=== PATIENT | female | born 1990 | race Caucasian/White ===

== ENCOUNTER 2017-01-31 15:38 | Emergency (ER) | payer BC ==
[2017-01-31 15:51] VITALS: BP 138/78
--- NOTE | 2017-01-31 16:00 | UC ---
Respiratory Complaint HPI - HPI Summary HPI Summary: 26 y/o female presents to the urgent care c/o productive cough since Sunday. Pt states she is producing a mild white phlegm. She felt mild SOB and started using her Albuterol inhaler. She has also taking [id number] PO for her body aches, which has resolved today. Pt denies fever, wheezing, chest pain , LAGOS, nasal congestion, N/V/D. - History of Current Complaint Chief Complaint: UCRespiratory Stated Complaint: COUGH/FEVER Time Seen by Provider: 01/31/17 15:58 Hx Obtained From: Patient Hx Last Menstrual Period: 01/22/17 ?: No Onset/Duration: Gradual Onset, Lasting Days, Still Present Timing: Constant Severity Initially: Mild Severity Currently: Moderate Pain Intensity: 0 Pain Scale Used: 0-10 Numeric Character: Cough: Productive - white phlegm Aggravating Factors: Nothing Alleviating Factors: Bronchodilator Associated Signs And Symptoms: Positive: Dyspnea, Nasal Congestion. Negative: Fever, Wheezing - Risk Factors Pulmonary Embolism Risk Factors: Negative Cardiac Risk Factors: Negative Pseudomonas Risk Factors: Negative Tuberculosis Risk Factors: Negative - Allergies/Home Medications Allergies/Adverse Reactions: Allergies Allergy/AdvReac Type Severity Reaction Status Date / Time Erythromycin Allergy Intermediate Hives Verified 01/31/17 15:47 Amoxicillin Allergy Rash Verified 01/31/17 15:47 pecans Allergy Swelling Uncoded 01/31/17 15:47 Of Face,Lips,& Throat PMH/Surg Hx/FS Hx/Imm Hx Previously Healthy: Yes Respiratory History: Asthma - Surgical History Surgical History: Yes Surgery Procedure, Year, and Place: C- section 09/26/15; wisdom teeth - Family History Known Family History: Positive: Cardiac Disease - BROTHER WPW, FATHER CARDIAC CONCERNS, Hypertension, Diabetes - Social History Occupation: Employed Full-time Lives: With Family Alcohol Use: None Substance Use Type: None Smoking Status (MU): Never Smoked Tobacco Review of Systems Constitutional: Negative, Other - body aches Skin: Negative Eyes: Negative ENT: Nasal Discharge, Sinus Congestion Respiratory: Shortness Of Breath - mild Cardiovascular: Negative Gastrointestinal: Negative Genitourinary: Negative Motor: Negative Neurovascular: Negative Musculoskeletal: Negative Neurological: Negative Psychological: Negative Is Patient Immunocompromised?: No All Other Systems Reviewed And Are Negative: Yes Physical Exam Triage Information Reviewed: Yes Appearance: Well-Appearing, No Pain Distress, Well-Nourished, Obese Vital Signs: Initial Vital Signs Temp 98.2 F 01/31/17 15:43 Pulse 65 01/31/17 15:43 Resp 16 01/31/17 15:43 BP 138/78 01/31/17 15:43 Pulse Ox 99 01/31/17 15:43 Vital Signs Reviewed: Yes Eye Exam: Normal Eyes: Positive: Conjunctiva Clear - PERRLA, EOMI ENT: Positive: Normal ENT inspection, Hearing grossly normal, Pharyngeal erythema, Nasal congestion - edematous, erythematous nasal mucosa, Nasal drainage - clear. Negative: Tonsillar swelling, Tonsillar exudate Dental Exam: Normal Neck exam: Normal Neck: Positive: Supple, Nontender, No Lymphadenopathy Respiratory Exam: Normal Respiratory: Positive: Chest non-tender, Lungs clear, Normal breath sounds, No respiratory distress Cardiovascular Exam: Normal Cardiovascular: Positive: RRR, No Murmur, Pulses Normal Abdominal Exam: Normal Abdomen Description: Positive: Nontender, No Organomegaly, Soft. Negative: CVA Tenderness (R), CVA Tenderness (L) Bowel Sounds: Positive: Present Musculoskeletal Exam: Normal Musculoskeletal: Positive: Strength Intact, ROM Intact, No Edema Neurological Exam: Normal Psychological Exam: Normal Skin Exam: Normal UC Diagnostic Evaluation - Laboratory O2 Sat by Pulse Oximetry: 99 Respiratory Course/Dx - Course Course Of Treatment: 26 y/o female presents to the urgent care c/o productive cough since Sunday01/28/2017. Pt states she is producing a mild white phlegm. She felt mild SOB and started using her Albuterol inhaler. She has also taking [id number] PO for her body aches, which has resolved today. Pt denies fever , wheezing, chest pain, LAGOS, nasal congestion, N/V/D.Hx obtained, PE performed. Pt with the URI. Pt Tessalon PO to alleviate cough, advised to use the albuterol nebulizer at home if she continues with SOB. Advised to increase fluid intake, rest and eat well. If not improvement of symptoms to return to the urgent care or f/u with PCP for further management. - Differential Dx/Diagnosis Differential Diagnosis/HQI/PQRI: Asthma, Bronchitis, Influenza, Laryngitis, Lower Resp Infection, Sinusitis Provider Diagnoses: 1- Upper respiratory infection Discharge - Discharge Plan Condition: Stable Disposition: HOME Prescriptions: Albuterol 2.5MG/3ML (0.083%)* [Ventolin 2.5 MG/3 ML NEB.ELLA*] 2.5 mg INH Q6H #1 box Benzonatate CAP* [Tessalon 100 MG CAP*] 100 mg PO TID #15 cap Patient Education Materials: Cold Symptoms (ED) Referrals: FRANSISCO Olguin [Primary Care Provider] - 1 Week Additional Instructions: 1-Please continue taking ibuprofen PO q6-8hrs prn as instructed after meals to alleviate symptoms. 2- Take Tessalon Tabs PO to alleviate cough, increase fluid intake, rest ant est well. Use the Nebulizer in case you start feeling SOB. 3-If symptoms do not improve or worsen please return to the urgent care or f/u with your PCP for further evaluation and treatment.
== END 2017-01-31 16:29 | disposition home or self-care (01) ==
LOC: UCCORT 15:38
DX: J06.9 Acute upper respiratory infection, unspecified (principal); J45.909 Unspecified asthma, uncomplicated; Z88.0 Allergy status to penicillin
CPT/HCPCS: 99212; G0463

== ENCOUNTER 2017-03-13 12:21 | Emergency (ER) | payer BC ==
[2017-03-13 14:12] VITALS: BP 115/63
--- NOTE | 2017-03-13 14:33 | UC ---
Complaint Female HPI - HPI Summary HPI Summary: 26 y/o female presents to the urgent care c/o feeling bloated and gassy with ache pain around his upper abdomen that radiates to his lower back for the past week. Pain is dull. 6/10. She also states frequency and pressure with urination. She has had nausea at times, espically when she is very bloated, but denies vomit, diarrhea or constipation. She had a normal BM this morning and she had a good breakfast this morning. She took Ibuprofen 200mg PO last night which relieve her symptoms. Pt denies fever, chest pain, SOB, burning on urination, vaginal discharge, Hx of STDs. LMP: 02/23/2017 - History Of Current Complaint Chief Complaint: UCGeneralIllness Stated Complaint: URINARY Time Seen by Provider: 03/13/17 14:02 Hx Obtained From: Patient Hx Last Menstrual Period: 02/23/17 ?: No Onset/Duration: Gradual Onset, Lasting Weeks - 1 week, Still Present Timing: Intermittent, Lasting Minutes Severity Initially: Mild Severity Currently: Moderate Pain Intensity: 6 Pain Scale Used: 0-10 Numeric Radiates to: lower back Character: Dull Aggravating Factor(s): Urination Alleviating Factor(s): Meds Associated Signs And Symptoms: Positive: Back Pain, Nausea. Negative: Fever, Vomiting(# Of Episodes =), Genital Swelling, Genital Blisters - Risk Factors Ectopic Risk Factor: Negative Ovarian Torsion Risk Factor: Negative - Allergies/Home Medications Allergies/Adverse Reactions: Allergies Allergy/AdvReac Type Severity Reaction Status Date / Time Erythromycin Allergy Intermediate Hives Verified 03/13/17 14:04 Amoxicillin Allergy Rash Verified 03/13/17 14:04 pecans Allergy Swelling Uncoded 03/13/17 14:04 Of Face,Lips,& Throat PMH/Surg Hx/FS Hx/Imm Hx Previously Healthy: Yes Respiratory History: Asthma - Surgical History Surgical History: Yes Surgery Procedure, Year, and Place: C- section 09/26/15; wisdom teeth - Family History Known Family History: Positive: Cardiac Disease - BROTHER WPW, FATHER CARDIAC CONCERNS, Hypertension, Diabetes, Other - NO fmh of mastitis - Social History Occupation: Employed Full-time Lives: With Family Alcohol Use: Occasionally Substance Use Type: None Smoking Status (MU): Never Smoked Tobacco Review of Systems Constitutional: Negative Skin: Negative Eyes: Negative ENT: Negative Respiratory: Negative Cardiovascular: Negative Gastrointestinal: Abdominal Pain - ache, dull , bloaded abdomen around upper abdomen with burping Genitourinary: Frequency - and bladder pressure Motor: Negative Neurovascular: Negative Musculoskeletal: Negative Neurological: Negative Psychological: Negative Is Patient Immunocompromised?: No All Other Systems Reviewed And Are Negative: Yes Physical Exam Triage Information Reviewed: Yes Vital Signs: Initial Vital Signs Temp 98.9 F 03/13/17 14:06 Pulse 89 03/13/17 14:06 Resp 18 03/13/17 14:06 BP 115/63 03/13/17 14:06 Pulse Ox 99 03/13/17 14:06 - Additional Comments Vital Signs Reviewed: Yes General: well developed, well nourished female sitting in the examining table w/ o any apparent distress Eyes: Positive: Conjunctiva Clear - PERRLA, EOMI, fundi grossly normal ENT: Positive: Normal ENT inspection, Hearing grossly normal, Pharynx normal, TMs normal Neck: Positive: Supple, Nontender, No Lymphadenopathy Respiratory: Positive: Chest non-tender, Lungs clear, Normal breath sounds, No respiratory distress Cardiovascular: Positive: RRR, No Murmur, Pulses Normal, Brisk Capillary Refill Abdomen Description: abdomen Flat with no distention. No surface trauma, scars , incisions. hyperactive bowel sounds present in all four quadrants. Soft and non tenderness to palpation, no guarding, no rigidity to palpation. No masses palpated, no pulsation in epigastric area. No organomegaly. Negative [place] signs. No periumbilical tenderness. No rebound in the lower quadrants. NT over McBurneys point. no suprapubic tenderness with no distension. Good femoral pulses bilaterally. No hernia noted. No CVAT bilaterally Bowel Sounds: Positive: Present, Hyperactive Musculoskeletal: Positive: Strength Intact, ROM Intact, No Edema Neurological Exam: Normal Psychological Exam: Normal Skin Exam: Normal Complaint Female Dx - Course Course Of Treatment: 26 y/o female presents to the urgent care c/o feeling bloated and gassy with ache pain around his upper abdomen that radiates to his lower back for the past week. Pain is dull. 6/10. She also states frequency and pressure with urination. She has had nausea at times, especially when she is very bloated, but denies vomit, diarrhea or constipation. She had a normal BM this morning and she had a good breakfast this morning. She took Ibuprofen 200mg PO last night which relieve her symptoms. Pt denies fever, chest pain, SOB , burning on urination, vaginal discharge, Hx of STDs. LMP: 02/23/2017. Hx obtained, UA ordered, Result: negative. PE : WNL. Pt retaining a lot of gas in the abdomen. Pt Rx Ibuprofen PO and Omeprazole PO. Advised on dietary modifications. Pt explained D/C intrsuctions. Pt understood and agreed with plan of care. - Differential Dx/Diagnosis Differential Diagnosis/HQI/PQRI: Cervicitis, Renal Colic, Ureteral Stone, Urinary Tract Infection Provider Diagnoses: 1-Epigastric abdominl pain. 2-Gas and bloating Discharge - Discharge Plan Condition: Stable Disposition: HOME Prescriptions: Ibuprofen TAB* [Motrin TAB* 800 MG] 800 mg PO Q6H #20 tab Omeprazole CAP* [Prilosec CAP* 20 MG] 20 mg PO DAILY #30 cap. Patient Education Materials: Gas and Bloating (ED), Abdominal Pain (ED) Referrals: FRANSISCO Olguin [Primary Care Provider] - 3 Days Additional Instructions: 1- Please take medications as directed to alleviate symptoms. Take Ibuprofen PO after meals. Drink hot water or hot tea to relieve gas. Limiting dietary ingestion of known gas-producing foods such as cabbage, onions, broccoli, brussel sprouts, wheat, and potatoes can help reduce symptoms. Also avoid drinking carbonated beverages, and gulping food or liquids 2 - If symptoms do not improve or worsen in the next 2 days please go immediately to the ER or your PCP for further evaluation and treatment.
[2017-03-13] MEDS ORDERED: Ibuprofen TAB* 400 MG PO ONE (14:54)
== END 2017-03-13 15:25 | disposition home or self-care (01) ==
LOC: UCCORT 12:21
DX: R10.13 Epigastric pain (principal); R14.0 Abdominal distension (gaseous); Z32.02 Encounter for pregnancy test, result negative; Z88.1 Allergy status to other antibiotic agents; Z91.018 Allergy to other foods
CPT/HCPCS: 81003; 84702; 99212; A9270-GY; G0463

== ENCOUNTER 2017-10-30 15:22 | Emergency (ER) | payer BC ==
[2017-10-30 16:16] VITALS: BP 134/68
--- NOTE | 2017-10-30 16:34 | UC ---
Throat Pain/Nasal Robbin HPI - HPI Summary HPI Summary: Pt c/o sore throat and generalized malaise X 2 weeks. Pt states she was seen by PCP 1 week ago and had rapid strep test- negative, now states throat has improved but sinus pressure and pain has worsened. - History of Current Complaint Chief Complaint: UCGeneralIllness Stated Complaint: SORE THROAT, CONGESTION Time Seen by Provider: 10/30/17 16:26 Hx Obtained From: Patient Hx Last Menstrual Period: 10/01/17 ?: No Onset/Duration: Gradual Onset, Lasting Weeks, Still Present, Worse Since - onset Severity: Moderate Pain Intensity: 6 Associated Signs & Symptoms: Positive: Dysphagia, Sinus Discomfort Related History: Seasonal Allergies - Epiglottits Risk Factors Epiglottis Risk Factors: Negative - Allergies/Home Medications Allergies/Adverse Reactions: Allergies Allergy/AdvReac Type Severity Reaction Status Date / Time amoxicillin Allergy Rash Verified 10/30/17 16:17 erythromycin base Allergy Hives Verified 10/30/17 16:17 pecans Allergy Swelling Uncoded 10/30/17 16:17 Of Face,Lips,& Throat Home Medications: Home Medications Dm/Pseudoephed/Acetaminophen [Day-Time Cold-Flu Softgel] 1 each PO Q6HR PRN 10/12 [History Confirmed 10/30/17] PMH/Surg Hx/FS Hx/Imm Hx Previously Healthy: Yes - Surgical History Surgical History: Yes Surgery Procedure, Year, and Place: C- section 09/26/15; wisdom teeth - Family History Known Family History: Positive: Cardiac Disease - BROTHER WPW, FATHER CARDIAC CONCERNS, Hypertension, Diabetes, Other - NO fmh of mastitis - Social History Occupation: Employed Full-time Lives: With Family Alcohol Use: Occasionally Substance Use Type: None Smoking Status (MU): Never Smoked Tobacco Have You Smoked in the Last Year: No Review of Systems Constitutional: Fatigue Skin: Negative Eyes: Negative ENT: Sore Throat, Sinus Congestion, Sinus Pain/Tenderness Respiratory: Negative Cardiovascular: Negative Gastrointestinal: Negative Genitourinary: Negative Motor: Negative Neurovascular: Negative Musculoskeletal: Negative Neurological: Headache Psychological: Negative Is Patient Immunocompromised?: No All Other Systems Reviewed And Are Negative: Yes Physical Exam Triage Information Reviewed: Yes Appearance: Ill-Appearing Vital Signs: Initial Vital Signs Temp 98.9 F 10/30/17 16:12 Pulse 86 10/30/17 16:12 Resp 16 10/30/17 16:12 BP 134/68 10/30/17 16:12 Pulse Ox 99 10/30/17 16:12 Vital Signs Reviewed: Yes Eye Exam: Normal ENT Exam: Other ENT: Positive: Tonsillar swelling, Sinus tenderness Dental Exam: Normal Neck exam: Normal Respiratory Exam: Normal Cardiovascular Exam: Normal Musculoskeletal Exam: Normal Neurological Exam: Normal Psychological Exam: Normal Skin Exam: Normal Throat Pain/Nasal Course/Dx - Differential Dx/Diagnosis Differential Diagnosis/HQI/PQRI: Pharyngitis, Sinusitis, Tonsillitis Provider Diagnoses: sinusitis Discharge - Sign-Out/Discharge Documenting (check all that apply): Discharge/Admit/Transfer - Discharge Plan Condition: Stable Disposition: HOME Prescriptions: DOXYcycline CAP(*) [DOXYcycline 100MG CAP(*)] 100 mg PO Q12H #20 cap Patient Education Materials: Sinusitis (ED), Tonsillitis (ED) Referrals: FRANSISCO Olguin [Primary Care Provider] - Additional Instructions: Please follow up with your PCP or return to clinic as needed. - Billing Disposition and Condition Condition: STABLE Disposition: Home
== END 2017-10-30 16:41 | disposition home or self-care (01) ==
LOC: UCCORT 15:22
DX: J32.9 Chronic sinusitis, unspecified (principal); Z88.1 Allergy status to other antibiotic agents
CPT/HCPCS: 99212; G0463

== ENCOUNTER 2018-09-11 07:57 | Inpatient (IN) | payer BC, OTHER ==
[~2018-09-11 07:57] MED LIST: Buffered Lidocaine 1% SYRIN* 1 ML/SYRINGE INTRADERM ONE; Lactated Ringers 1000 ML Bag* 1,000 ML IV SCH; Sodium Citrate/Citric Acid* 15 ML UDC PO ONE
--- OUTSIDE RECORDS SUMMARY | 2018-09-11 08:02 | XMS REPORT | Continuity of Care Document ---
:1990 External Reference #:[id number] Author Name Janice Keys MD Address [address] [place] [address] Care Team Providers Name Role Phone Tiera Bhatt MD Primary Care Physician Unavailable Payers Date Identification Numbers Payment Provider Subscriber Policy Number: [id number] [facility] Steve Ko PayID: [id number] [address] [address] [place] [address] Policy Number: [id number] [facility] Steve Ko PayID: [id number] [address] [place] [address] Advance Directives Description No Information Available Problems Description No Information Family History Date Family Member(s) Observation Comments Father due to Unknown Causes () Mother A&W Children 3 First Son A&W First Daughter A&W Second Daughter A&W Siblings 2 First Brother A&W First Brother born with heart problems First Brother born with white boles parkinsons First Sister A&W Paternal Grandfather due to heart problems () Paternal Grandmother Skin Cancer Maternal Grandfather A&W Maternal Grandmother A&W Social History Type Date Description Comments Sex Unknown Marital Status Lives With Lives With Daughters Lives With Son Tobacco Use Start: Unknown Never Smoked Cigarettes ETOH Use Occasionally consumes alcohol Recreational Drug Use Denies Drug Use Currently Active Patient is currently sexually active STD's No STD History Allergies, Adverse Reactions, Alerts Date Description Reaction Status Severity Comments 02/18/2018 Erythromycin Hives Active Severe 02/18/2018 Amoxicillin Rash Active Moderate Medications Medication Date Status Form Strength Qnty SIG Indications Ordering Provider Advocate 08/14/ Active Misc 33G X 4 mm 100uni Use with Lana Whitman Insulin Pen 2018 ts KwikPen Jose Ripley , CNM Humulin N 08/13/ Active Supn 100Unit/ML 3ml inject 2 Phaelon Kwikpen 2019 units SQ at MD Jenny bedtime, increase as directed Blood Glucose 07/26/ Active Kit W/Device 1Monit use in in Federico ANery Monitoring 2018 or the morning Gelber, System before M.D. eating, then 2 hours after every meal Blood Glucose 07/26/ Active Strips 100uni use as Federico Ley Test Strips 2018 ts directed Gelber, Premium M.D. Lancets 07/26/ Active Misc 100uni for use with Federico A. 2019 ts blood Gelber, glucose M.D. monitor. use as directed four times a day Ferrous 07/18/ Active Tablets 324(38Fe) 60tabs 1 by mouth Federico A. Gluconate 2019 mg every day GelFernandez garcia Diclegis 02/25/ Active Tablets DR 10-10mg 100tab take 2 tabs Mahrie 2018 s qhs. if Baez, symptoms CNM persist can add 1 tab qam . if symptoms persist, add 1 tab every afternoon. MDD 4 tabs Ondansetron 02/25/ Active Tablets 4mg 30tabs 1-2 tablets Erianna HCL 2018 every 6 Poon, hours as CNM needed for nausea Flintstones / Active Chewtabs 60mg take 2 by Unknown Complete 0000 mouth daily Epipen 2-Ray / Active Solution 0.3mg/0.3M bring to Unknown 0000 Auto-Injec L office as t directed Benadryl / Active Tablets 25mg prn Unknown Allergy 0000 Metformin HCL 08/06/ Hx Tablets 500mg 90tabs take 1 Federico A. 2019 - tablet once Gelber, 08/28/ daily for 7 M.D. 2019 days, then take 1 tablet 2 times a day for 7 days, then take 1 tablet 3 times a day. Tamiflu 07/05/ Hx Capsules 75mg 10caps 1 by mouth Mahrie 2019 - daily x 10 Baez, 07/12/ days for flu CNM 2019 prophylaxis Reglan 02/18/ Hx Tablets 5mg 60tabs 1-2 tabs by Erianna 2018 - mouth every Poon, 6 hours as CNM 2019 needed nausea Unisom / Hx Tablets 25mg Unknown 0000 - 2018 Vitamin B 6 / Hx Tablets 50mg Unknown 0000 - 2018 Immunizations Description No Information Available Vital Signs Date Vital Result Comment 03/07/2018 9:27am BP Systolic 130 mmHg BP Diastolic 68 mmHg Height 63 inches 5'3" Weight 194.00 lb BMI (Body Mass Index) 34.4 kg/m2 Last Menstrual Period [id number] 4 Parity 3 Results Test Date Facility Test Result H/L Range Note Laboratory test [facility] Genital For GRP SEE RESULT 1 finding [address] [place] [address] B Strep Only BELOW [phone] Glucose Tolerance [facility] GTT 3HR (SEE NOTE) 2 3HR Gestational 9 [place] [address] Gestational [phone] Laboratory test [facility] Glucose 1 HR 183 mg/dL High 70-160 3 finding 9 [place] [address] Post Prandial [phone] CBC With No Diff [facility] White Blood 10.2 N 3.5- 10.8 9 [place] [address] Count 10^3/uL [phone] Red Blood Count 4.09 10^6/uL N 4.00-5.40 Hemoglobin 10.7 g/dL Low 12.0-16.0 Hematocrit 34 % Low 35-47 Mean Corpuscular Volume 83 fL N 80-97 Mean Corpuscular Hemoglobin 26 pg Low 27-31 Mean Corpuscular HGB Conc 32 g/dL N 31-36 Red Cell Distribution Width 15 % N 10.5-15 Platelet Count 315 10^3/uL N 150-450 Mean Platelet Volume 7.7 fL N 7.4-10.4 Laboratory test 07/17/2018 [facility] Rubella Screen Equivocal Immune 4 [place] [address] [phone] Urine Drug Comp 04/04/2018 [facility] Urine Negative 5 20 [place] [address] Amphetamine ng/mL [phone] Urine Barbiturates Negative ng/mL 6 Urine Benzodiazepines Negative ng/mL 7 Urine Cocaine Negative ng/mL 8 Urine Phencyclidine Negative ng/mL Cutoff: 25 Urine Tetrahydrocannabinol Negative ng/mL Cutoff: 50 9 Creatinine, Urine 141.5 mg/dL Specific Hickman 1.014 pH 7.1 Oxidants Negative 10 Adulterants Comment Normal Codeine, Ur Not Detected ng/mL Cutoff: 25 11 Msvcpkp-0-pobc-glucuronide, Ur Not Detected ng/mL 12 Morphine, Ur Not Detected ng/mL Cutoff: 25 13 Gzjlaabk-5-wbxe-glucuronide, U Not Detected ng/mL 14 6-monoacetylmorphine, Ur Not Detected ng/mL Cutoff: 25 15 Hydrocodone, Ur Not Detected ng/mL Cutoff: 25 16 Norhydrocodone, Ur Not Detected ng/mL Cutoff: 25 17 Dihydrocodeine, Ur Not Detected ng/mL Cutoff: 25 18 Hydromorphone, Ur Not Detected ng/mL Cutoff: 25 19 Ymyjiyoxvupip6pxxdkkmlldsfokq Not Detected ng/mL 20 Oxycodone, Ur Not Detected ng/mL Cutoff: 25 21 Noroxycodone, Ur Not Detected ng/mL Cutoff: 25 22 Oxymorphone, Ur Not Detected ng/mL Cutoff: 25 23 Tnfhlhtobwm-1-juyw-glucuronide Not Detected ng/mL 24 Noroxymorphone, Ur Not Detected ng/mL Cutoff: 25 25 Fentanyl, Ur Not Detected ng/mL Cutoff: 2 26 Norfentanyl, Ur Not Detected ng/mL Cutoff: 2 27 Meperidine, Ur Not Detected ng/mL Cutoff: 25 28 Normeperidine, Ur Not Detected ng/mL Cutoff: 25 29 Naloxone, Ur Not Detected ng/mL Cutoff: 25 30 Rizcbdyt-8-tsen-glucuronide, U Not Detected ng/mL 31 Methadone, Ur Not Detected ng/mL Cutoff: 25 32 Eddp, Ur Not Detected ng/mL Cutoff: 25 33 Propoxyphene, Ur Not Detected ng/mL Cutoff: 25 34 Norpropoxyphene, Ur Not Detected ng/mL Cutoff: 25 35 Tramadol, Ur Not Detected ng/mL Cutoff: 25 36 O-desmethyltramadol, Ur Not Detected ng/mL Cutoff: 25 37 Tapentadol, Ur Not Detected ng/mL Cutoff: 25 38 N-desmethyltapentadol, Ur Not Detected ng/mL Cutoff: 50 39 Duhkojczcq-vhzz-xstrlqchbjt, U Not Detected ng/mL 40 Buprenorphine, Ur Not Detected ng/mL Cutoff: 5 41 Norbuprenorphine, Ur Not Detected ng/mL Cutoff: 5 42 Norbuprenorphine glucuronide Not Detected ng/mL Cutoff: 20 43 Opioid Interpretation See Comment 44 GC/Chlamydia Dna 04/04/2018 [facility] Chlamydia [place] [address] trachomatis Rna [phone] Neisseria gonorrhoeae (GC) Rna Negative Negative Urine Culture And 03/07/2018 [facility] Urine Culture SEE RESULT 45 [place] [address] BELOW [phone] Toxoplasma Igg & 03/07/2018 [facility] Toxoplasma IgG [place] [address] Antibody [phone] Toxoplasma IgG Antibody Index <3 IU/mL 46 Toxoplasma IgM Antibody Negative Negative 47 Parvovirus B19 03/07/2018 [facility] Parvovirus Positive Abnormal Negative Igg [place] [address] (B19) IgG [phone] Antibody Parvovirus (B19) IgM Antibody Negative Negative Parvovirus Interpretation See Comment 48 Lead 03/07/2018 [facility] Lead,Venous, B < 1.0 g/dL 0.0- 4.9 49 [place] [address] [phone] Venous/Capillary Venous Submitting Laboratory Phone [phone] HIV 1/2 AB 03/07/2018 [facility] HIV 1 2 Nonreactive Nonreactive 51 [place] [address] Antibody [phone] Type And 03/07/2018 [facility] [place] [address] Blood Type [phone] Antibody Screen NEGATIVE CBC With No 03/07/2018 [facility] White Blood 7.6 10^3/uL N 3.5-10.8 [place] [address] Count [phone] Red Blood Count 4.37 10^6/uL N 4.00-5.40 Hemoglobin 12.8 g/dL N 12.0-16.0 Hematocrit 38 % N 35-47 Mean Corpuscular Volume 88 fL N 80-97 Mean Corpuscular Hemoglobin 29 pg N 27-31 Mean Corpuscular HGB Conc 33 g/dL N 31-36 Red Cell Distribution Width 14 % N 10.5-15 Platelet Count 281 10^3/uL N 150-450 Mean Platelet Volume 7.7 um3 N 7.4-10.4 PNL No 03/07/2018 [facility] Rubella Screen Equivocal Immune 52 [place] [address] [phone] Hemoglobin A1c 5.3 % N 4.0-5.6 53 Hepatitis B Surface Ag Nonreactive Nonreactive 54 Syphillis Igg W/Reflex RPR Nonreactive Nonreactive 55 Laboratory test 03/07/2018 [facility] Cytology SEE RESULT BELOW 56 [place] [address] [phone] 1 SEE RESULT BELOW Name: STEVE SHIN : [address]: Janice Keys MD Acct: [id number] Unit: [id number] AGE: 28 Location: [facility] Re08/20/18 SEX: F Status: REG REF SPEC: [id number] FRANKIE: 08/20/[address]: Janice Keys MD REQ: [id number] RECD: 08/20/18-1231 STATUS: COMP _ SOURCE: CER/VAG/RE SPDESC: ORDERED: Grp B Strp Scrn, GBS Sensi COMMENTS: Pt with allergies to Amoxicillin and Erythromycin [id number] QUERIES: Is Patient Penicillin Allergic? Y Is patient penicillin allergic and/or sensitivities needed? Y Provider Requisition # [id number]_ Procedure Result Reported Site Group B Strep Culture Screen Final 08/23/18845 ML Group B Strep Screen Positive GBS Sensitivity Final 08/23/18845 ML Organism 1 STREP AGALACTIAE - (GROUP B) 1. STREP AGALACTIAE - (GROUP B) M.I.C. RX --------- ------ Ampicillin <=0.25 S Penicillin <=0.12 S Clindamycin R Levofloxacin 1 S Linezolid 2 S * Moxifloxacin 0.5 S * Quinupristin/Dalfopristin <=0.25 S Tetracycline >=16 R Tigecycline <=0.12 S Vancomycin <=0.5 S Imipenem-Deduced S * Ampicillin/Sulbactam-Deduced S Cefazolin-Deduced S CONTINUED ON NEXT PAGE DEPARTMENT OF PATHOLOGY, [address] [place] [address] Bean Ott M.D. Director [facility] # [id number] Patient: STEVE SHIN [id number] (Continued) Specimen: [id number] Collected: 08/20/18 Received: 08/20/18-1230 (Continued) Procedure Result Reported Site GBS Sensitivity Final (continued) * These antibiotics are not available in the [facility] Formulary Contact the Microbiology Department for any additional antibiotic reporting. * ML - Main Lab . END OF REPORT DEPARTMENT OF PATHOLOGY, [address], [place], [place] [address] Bean Ott M.D. Director [facility] # [id number] 2 GLU Fast 92 Col: 07/25/18 1055 GLU 1HR 201 Col: 07/25/18 1155 GLU 2HR 181 Col: 07/25/18 1255 GLU 3HR 103 Col: 07/25/18 1355 GLU Interp Col: 07/25/18 1055 GTT normal ranges for obstetrics per the [employer] (ACOG).Based on 100 gm glucose load: Fasting <95 mg/dl 1hr <180 mg/dl 2hr <155 mg/dl 3hr <140 mg/dl 3 [id number] 4 [id number] 5 REFERENCE VALUE Cutoff: 500 6 REFERENCE VALUE Cutoff: 200 7 REFERENCE VALUE Cutoff: 100 8 REFERENCE VALUE Cutoff: 150 9 ADDITIONAL INFORMATION This report is intended for use in clinical monitoring or management of patients. It is not intended for use in employment-related testing. 10 REFERENCE VALUE Cutoff: 200 mg/L 11 Tylenol 3 12 Metabolite of codeine REFERENCE VALUE Cutoff: 100 13 Samreen Foote, Contin; Also a minor metabolite (10%) of codeine and can be seen in low concentrations (<2,000 ng/mL) with poppy seed ingestion. 14 Metabolite of morphine REFERENCE VALUE Cutoff: 100 15 Metabolite of heroin 16 Lortab, Umbarger, Vicodin; Also a very minor metabolite of codeine and impurity (<1%) of oxycodone. 17 Metabolite of hydrocodone 18 Metabolite of hydrocodone 19 Dilaudid, Exalgo; Also a metabolite of hydrocodone and a minor (<5%) metabolite of morphine. 20 Metabolite of hydromorphone REFERENCE VALUE Cutoff: 100 21 Endocet, Percocet, Oxycontin 22 Metabolite of oxycodone 23 Numorphan, Opana; Also a metabolite of oxycodone. 24 Metabolite of oxymorphone REFERENCE VALUE Cutoff: 100 25 Metabolite of oxymorphone 26 Actiq, Duragesic, Fentora 27 Metabolite of fentanyl 28 Demerol 29 Metabolite of meperidine 30 Narcan 31 Metabolite of naloxone REFERENCE VALUE Cutoff: 100 32 Dolophine 33 Metabolite of methadone 34 Darvon, Darvocet 35 Metabolite of propoxyphene 36 Tradol, Ultram, Ultracet 37 Metabolite of tramadol 38 Nucynta 39 Metabolite of tapentadol 40 Metabolite of tapentadol REFERENCE VALUE Cutoff: 100 41 Buprenex, Suboxone 42 Metabolite of buprenorphine 43 Metabolite of buprenorphine 44 No opioids were detected. The absence of expected drug(s) and/or drug metabolite(s) may indicate non-compliance, altered pharmacokinetics, inappropriate timing of specimen collection relative to drug administration, diluted/adulterated urine, or limitations of testing. ADDITIONAL INFORMATION This test was developed and its performance characteristics determined by [facility] in a manner consistent with CLIA requirements. This test has not been cleared or approved by the U.S. Food and Drug Administration. Test Performed by: [facility] [address] [place] [address] 45 SEE RESULT BELOW Name: STEVE SHIN : [address]: Cathleen Shore Acct: [id number] Unit: [id number] AGE: 27 Location: [facility] Re03/07/18 SEX: F Status: REG REF SPEC: [id number] FRANKIE: 03/07/18 [facility] DR: Cathleen Shore REQ: [id number] RECD: 03/07/18 STATUS: COMP _ SOURCE: URINE SPDESC: ORDERED: Urine Culture COMMENTS: [id number] Urine Source: Random Procedure Result Reported Site Urine Culture Final 03/08/18- 1333 ML No Growth (<1,000 CFU/mL) * ML - Main Lab . END OF REPORT DEPARTMENT OF PATHOLOGY, [address] [place] [address] Bean Ott M.D. Director [facility] # [id number] 46 REFERENCE VALUE <=9 IU/mL (Negative) 10-11 IU/mL (Equivocal) >=12 IU/mL (Positive) Test Performed by: [facility] [place] [address] 47 No IgM antibodies to T. gondii detected. Results may be negative in patients with recent infection or who are significantly immunosuppressed. 48 RESULT: Results suggest past infection. ADDITIONAL INFORMATION This test has been modified from the rigging slinger's instructions. Its performance characteristics were determined by [facility] in a manner consistent with CLIA requirements. This test has not been cleared or approved by the U.S. Food and Drug Administration. Test Performed by: [facility] [place] [address] 49 ADDITIONAL INFORMATION Testing performed by Inductively Coupled Plasma-Mass Spectrometry (ICP-MS). This test was developed and its performance characteristics determined by [facility] in a manner consistent with CLIA requirements. This test has not been cleared or approved by the U.S. Food and Drug Administration. 50 Test Performed by: [facility] - [address] [address] 51 It is recognized that currently available assays for the detection of antibodies to HIV-1 and/or HIV-2 may not detect all infected individuals. HIV antibodies may be undetectable in some stages of the infection and in some clinical conditions. The performance of this assay has not been established for populations of infants or children. Assayed by Chemiluminescence Microparticle Immunoassay on the Siemens Advia Centaur CP. Values obtained with different methods or kits cannot be used interchangeably.The diagnostic specificity of the ADVIA Centaur 1/O/2 Enhanced assay in the low risk population was 99.90% (6052/6058) with a 95% confidence interval of 99.78 to 99.96%. 52 [id number] 53 Therapeutic target for the treatment of diabetes mellitus patients is <7% HBA1C, and in selective patients <6.0%. Please refer to [place] [employer] diabetic care guidelines for further information. 54 [id number] 55 Warning: A positive result is not useful for establishing a diagnosis of syphilis. In most situations, such a result may reflect a prior treated infection; a negative result can exclude a diagnosis of syphilis except for incubating or early primary disease. 56 SEE RESULT BELOW Name: STEVE SHIN : [address]: Cathleen Shore Acct: [id number] Unit: [id number] AGE: 27 Location: [facility] Re03/07/18 SEX: F Status: REG REF SPEC: [id number] FRANKIE: 03/07/[address]: Cathleen Shore REQ: [id number] RECD: 03/07/18 STATUS: SOUT _ ORDERED: TP IMAGE ANALYS, HPV/Thin Prep COMMENTS: [id number] Negative for Intraepithelial lesion or Malignancy Date Time Test Result Flag (u) Normal Range 03/07/18 0952 @ HPV RNA Negative Negative @ @ The high-risk HPV types detected by the assay include: 16, @ 18, 31, 33, 35, 39, 45, 51, 52, 56, 58, 59, 66, and 68. A. Ectocervical/Endocervical Specimen Adequacy: Satisfactory of evaluation Transformation zone component identified Patient Information: HPV: High risk HPV RNA testing regardless of pap results. Actual Specimen Date: 03/07/18 Last Menstrual Date: 12/03/17 Spec Date if unknown: 2014 ?: Y Signed by and Reported on: POLINA Francis(ASCP) 1517 This Pap test was evaluated with the assistance of the Compumatrix Test Imaging System. Due to cytologic findings at the slicing machine operator/tender microscope, comprehensive manual rescreening by a Abstracter may be required. The Pap Smear is a screening test designed to aid in the detection of premalignant and malignant conditions of the uterine cervix. It is not a diagnostic procedure and should not be used as the sole means of detecting cervical cancer. Both false- positive and false- negative reports do occur. Depending on your risk status, a Pap smear should be obtained and evaluated every 1-3 years. END OF REPORT DEPARTMENT OF PATHOLOGY, [address] [place] [address] Bean Ott M.D. Director [facility] # [id number] Procedures Date Code Description Status 08/30/2018 52045 Echography Uterus Limited Completed 08/30/2018 13724 Non-Stress Test Completed 08/20/2018 43474 Biophysical Profile Without Non Stress Test Completed 08/20/2018 52149 Echography Uterus Follow-Up Or Repeat Completed 08/13/2018 44250 Non-Stress Test Completed 05/02/2018 82644 Echography Uterus Complete Completed 03/07/2018 47054 OB Ultrasound First Trimester Completed Encounters Description No Information Available Plan of Treatment Future Appointment(s):10/11/2018 1:00 pm - Janice Keys MD at [facility] 10:20 am - Lashanda Delgado CNM at [facility]09/11/2018 9:30 am - Janice Keys MD at [facility]
--- OUTSIDE RECORDS SUMMARY | 2018-09-11 08:02 | XMS REPORT | Continuity of Care Document ---
:1990 External Reference #:[id number] Author Name Sharmaine Watts Care Team Providers Name Role Phone Tiera Bhatt MD Primary Care Physician Unavailable Payers Date Identification Numbers Payment Provider Subscriber Policy Number: [id number] [facility] Steve Ko PayID: [id number] [address] [address] [place] [address] Policy Number: [id number] [facility] Steve Ko PayID: [id number] [address] [place] [address] Advance Directives Description No Information Available Problems [...] alcohol Recreational Drug Use Denies Drug Use Tobacco Use Start: Unknown Patient has never smoked Smoking Status Reviewed: 09/02/18 Patient has never smoked Currently Active Patient is currently sexually active STD's No STD History Allergies, Adverse Reactions, Alerts Date Description Reaction Status Severity Comments 02/18/2018 Erythromycin Hives Active Severe 02/18/2018 Amoxicillin Rash Active Moderate Medications Medication Date Status Form Strength Qnty SIG Indications Ordering Provider Advocate 03/20/ Active Misc 33G X 4 mm 100uni Use with Lana Antonette Insulin Pen 2018 ts KwikPen Jose [place] , CNM Humulin N 08/13/ Active Supn 100Unit/ML 3ml inject 2 Phaelon Kwikpen 2019 units SQ at MD Jenny bedtime, increase as directed Blood Glucose 07/26/ Active Kit W/Device 1Monit use in in Federico A. Monitoring 2018 or the morning Gelber, System before M.D. eating, then 2 hours after every meal Blood Glucose 07/26/ Active Strips 100uni use as Federico Medina. Test Strips 2018 ts directed Gelber, Premium M.D. Lancets 07/26/ Active Misc 100uni for use with Federico A. 2019 ts blood Gelber, glucose M.D. monitor. use as directed four times a day Ferrous 07/18/ Active Tablets 324(38Fe) 60tabs 1 by mouth Federico Ley Gluconate 2019 mg every day Fernandez Montano Diclegis 02/25/ Active Tablets DR 10-10mg 100tab [...] Hx Tablets 500mg 90tabs take 1 Federico ANery 2018 - tablet once Gelber, 08/28/ daily for 7 M.D. 2018 days, then take 1 tablet 2 times a day for 7 days, then take 1 tablet 3 times a day. Tamiflu 07/05/ Hx Capsules 75mg 10caps 1 by mouth Mahrie 2018 - daily x 10 Baez, 07/12/ days for flu CNM 2019 prophylaxis Reglan 02/18/ Hx Tablets 5mg 60tabs 1-2 tabs by Erianna 2018 - mouth every Poon, 05/29/ 6 hours as CNM 2019 needed nausea Unisom / Hx Tablets 25mg Unknown 0000 - 2018 Vitamin B 6 / Hx Tablets 50mg Unknown - 2018 Immunizations Description No Information Available Vital Signs Date Vital Result Comment 03/07/2018 9:27am BP Systolic 130 mmHg BP Diastolic 68 mmHg Height 63 inches 5'3" Weight 194.00 lb BMI (Body Mass Index) 34.4 kg/m2 Last Menstrual Period [id number] 4 Parity 3 Results Test Date Facility Test Result H/L Range Note Laboratory test [facility] Genital For GRP SEE RESULT 1 [address] [place] [address] B Strep Only BELOW [phone] Glucose Tolerance [facility] GTT 3HR (SEE NOTE) 2 3HR Gestational [address] [place] [address] Gestational [phone] Laboratory test [facility] Glucose 1 HR 183 mg/dL High 70-160 3 finding 9 [place] [address] Post Prandial [phone] CBC With No Diff [facility] White Blood 10.2 N 3.5- 10.8 9 [place] [address] Count 10^3/uL [phone] Red Blood Count 4.09 10^6/uL N 4.00-5.40 Hemoglobin 10.7 g/dL Low 12.0-16.0 Hematocrit 34 % Low 35-47 Mean Corpuscular Volume 83 fL N 80-97 Mean Corpuscular Hemoglobin 26 pg Low 27-31 Mean Corpuscular HGB Conc 32 g/dL N 31-36 Red Cell Distribution Width 15 % N 10.5-15 Platelet Count 315 10^3/uL N 150-450 Mean Platelet Volume 7.7 fL N 7.4-10.4 Laboratory test 07/17/2018 [facility] Rubella Screen Equivocal Immune 4 [place] [address] [phone] Urine Drug Comp 04/04/2018 [facility] Urine Negative 5 20 [place] [address] Amphetamine ng/mL [phone] Urine Barbiturates Negative ng/mL 6 Urine Benzodiazepines Negative ng/mL 7 Urine Cocaine Negative ng/mL 8 Urine Phencyclidine Negative ng/mL Cutoff: 25 Urine Tetrahydrocannabinol Negative ng/mL Cutoff: 50 9 Creatinine, Urine 141.5 mg/dL Specific [place] 1.014 pH 7.1 Oxidants Negative 10 Adulterants Comment Normal Codeine, Ur Not Detected ng/mL Cutoff: 25 11 Vmawwts-1-ofjc-glucuronide, Ur Not Detected ng/mL 12 Morphine, Ur Not Detected ng/mL Cutoff: 25 13 Vdbvbppu-3-nked-glucuronide, U Not Detected ng/mL 14 6-monoacetylmorphine, Ur Not Detected ng/mL Cutoff: 25 15 Hydrocodone, Ur Not Detected ng/mL Cutoff: 25 16 Norhydrocodone, Ur Not Detected ng/mL Cutoff: 25 17 Dihydrocodeine, Ur Not Detected ng/mL Cutoff: 25 18 Hydromorphone, Ur Not Detected ng/mL Cutoff: 25 19 Ajxzmgnsuoufk7vjijvtrbzagfgsf Not Detected ng/mL 20 Oxycodone, Ur Not Detected ng/mL Cutoff: 25 21 Noroxycodone, Ur Not Detected ng/mL Cutoff: 25 22 Oxymorphone, Ur Not Detected ng/mL Cutoff: 25 23 Aczklwbodip-8-wdez-glucuronide Not Detected ng/mL 24 Noroxymorphone, Ur Not Detected ng/mL Cutoff: 25 25 Fentanyl, Ur Not Detected ng/mL Cutoff: 2 26 Norfentanyl, Ur Not Detected ng/mL Cutoff: 2 27 Meperidine, Ur Not Detected ng/mL Cutoff: 25 28 Normeperidine, Ur Not Detected ng/mL Cutoff: 25 29 Naloxone, Ur Not Detected ng/mL Cutoff: 25 30 Ngneuixl-1-besz-glucuronide, U Not Detected ng/mL 31 Methadone, Ur [...] Ur Not Detected ng/mL Cutoff: 50 39 Gnjltxxssy-uzbe-dltrtevyvrm, U Not Detected ng/mL 40 Buprenorphine, Ur Not Detected ng/mL Cutoff: 5 41 Norbuprenorphine, Ur Not Detected ng/mL Cutoff: 5 42 Norbuprenorphine glucuronide Not Detected ng/mL Cutoff: 20 43 Opioid Interpretation See Comment 44 GC/Chlamydia Dna 04/04/2018 [facility] Chlamydia [place] [address] trachomatis Rna [phone] Neisseria gonorrhoeae (GC) Rna Negative Negative Urine Culture And 03/07/2018 [facility] Urine Culture SEE RESULT 45 [place] [address] BELOW [phone] Toxoplasma Igg & 03/07/2018 [facility] Toxoplasma IgG Negative [place] [address] Antibody [phone] Toxoplasma IgG Antibody Index <3 IU/mL 46 Toxoplasma IgM Antibody Negative Negative 47 Parvovirus B19 03/07/2018 [facility] Parvovirus Positive Abnormal Negative Igg & [place] [address] (B19) IgG [phone] Antibody Parvovirus (B19) IgM Antibody Negative Negative Parvovirus Interpretation See Comment 48 Lead 03/07/2018 [facility] Lead,Venous, B < 1.0 g/dL 0.0- 4.9 49 [place], [place] [address] [phone] Venous/Capillary Venous Submitting Laboratory Phone [phone] HIV 1/2 AB 03/07/2018 [facility] HIV 1 2 Nonreactive Nonreactive [address] [place] [address] Antibody [phone] Type And 03/07/2018 [facility] [place] [address] Blood Type [phone] Antibody Screen NEGATIVE CBC With No 03/07/2018 [facility] White Blood 7.6 10^3/uL N 3.5-10.8 [place] [address] Count [phone] Red Blood Count 4.37 10^6/uL N 4.00-5.40 Hemoglobin 12.8 g/dL N 12.0-16.0 Hematocrit 38 % N 35-47 Mean Corpuscular Volume 88 fL N 80-97 Mean Corpuscular Hemoglobin 29 pg N 27-31 Mean Corpuscular HGB Conc 33 g/dL N 31-36 Red Cell Distribution Width 14 % N 10.5-15 Platelet Count 281 10^3/uL N 150-450 Mean Platelet Volume 7.7 um3 N 7.4-10.4 PNL No 03/07/2018 [facility] Rubella Screen Equivocal Immune 52 [place] [address] [phone] Hemoglobin A1c 5.3 % N 4.0-5.6 53 Hepatitis B Surface Ag Nonreactive Nonreactive 54 Syphillis Igg W/Reflex RPR Nonreactive Nonreactive 55 Laboratory test 03/07/2018 [facility] Cytology SEE RESULT BELOW [address] [place] [address] [phone] 1 SEE RESULT BELOW Name: STEVE SHIN : [address]: Janice Keys MD Acct: [id number] Unit: [id number] AGE: 28 Location: [facility] Re08/20/18 SEX: F Status: REG REF SPEC: [id number] FRANKIE: 08/20/[address]: Janice Keys MD REQ: [id number] RECD: 08/20/18-1231 STATUS: COMP _ SOURCE: CER/VAG/RE SPDESC: ORDERED: Grp B Strp Scrn, GBS Sensi COMMENTS: Pt with allergies to Amoxicillin and Erythromycin [id number] QUERIES: Is Patient Penicillin Allergic? Y Is patient penicillin allergic and/or sensitivities needed? Y Provider Requisition # [id number] Procedure Result Reported Site Group B Strep [...] CONTINUED ON NEXT PAGE DEPARTMENT OF PATHOLOGY, [address] [place] [address] Bean Ott M.D. Director [facility] # [id number] Patient: STEVE SHIN [id number] (Continued) Specimen: [id number] Collected: 08/20/18 Received: 08/20/18-1230 (Continued) Procedure Result Reported Site GBS Sensitivity Final (continued) * These antibiotics are not available in the [facility] Formulary Contact the Microbiology Department for any additional antibiotic reporting. * [facility] - Main Lab . END OF REPORT DEPARTMENT OF PATHOLOGY, [address] [place] [address] Bean Ott M.D. Director [facility] # [id number] 2 GLU Fast 92 Col: 07/25/18 1055 GLU 1HR 201 Col: 07/25/18 1155 GLU 2HR 181 Col: 07/25/18 1255 GLU 3HR 103 Col: 07/25/18 1355 GLU Interp Col: 07/25/18 1055 GTT normal ranges for obstetrics per the [employer] (ACOG).Based on 100 gm glucose load: Fasting <95 mg/dl 1hr <180 mg/dl 2hr <155 mg/dl 3hr <140 mg/dl 3 [id number] 4 [id number] 5 REFERENCE VALUE Cutoff: 500 6 REFERENCE [...] REFERENCE VALUE Cutoff: 100 13 Samreen Foote, MS Contin; Also a minor metabolite (10%) of codeine and can be seen in low concentrations (<2,000 ng/mL) with poppy seed ingestion. 14 Metabolite of morphine REFERENCE VALUE Cutoff: 100 15 Metabolite of heroin 16 Lortab, [place], Vicodin; Also a very minor metabolite of [...] developed and its performance characteristics determined by [facility] in a manner consistent with CLIA requirements. This test has not been cleared or approved by the U.S. Food and Drug Administration. Test Performed by: [facility] [address] [place] [address] 45 SEE RESULT BELOW Name: STEVE SHIN : [address]: Cathleen Shore Acct: [id number] Unit: [id number] AGE: 27 Location: [facility] Re03/07/18 SEX: F Status: REG REF SPEC: [id number] FRANKIE: 03/07/[address] [facility] [address]: Cathleen Shore REQ: [id number] RECD: 03/07/18 STATUS: COMP _ SOURCE: URINE SPDESC: ORDERED: Urine Culture COMMENTS: [id number] Urine Source: Random Procedure Result Reported Site Urine Culture Final 03/08/18- 1333 ML No Growth (<1,000 CFU/mL) * [facility] - Main Lab . END OF REPORT DEPARTMENT OF PATHOLOGY, [address] [place] [address] Bean Ott M.D. Director [facility] # [id number] 46 REFERENCE VALUE <=9 IU/mL (Negative) 10-11 IU/mL (Equivocal) >=12 IU/mL (Positive) Test Performed by: [facility] [place] [address] 47 No IgM antibodies to T. gondii detected. Results may be negative in patients with recent infection or who are significantly immunosuppressed. 48 RESULT: Results suggest past infection. ADDITIONAL INFORMATION This test has been modified from the complex case manager's instructions. Its performance characteristics were determined by [facility] in a manner consistent with CLIA requirements. This test has not been cleared or approved by the U.S. Food and Drug Administration. Test Performed by: [facility] [place] [address] 49 ADDITIONAL INFORMATION Testing performed by Inductively Coupled Plasma-Mass Spectrometry (ICP-MS). This test was developed and its performance characteristics determined by [facility] in a manner consistent with CLIA requirements. This test has not been cleared or approved by the U.S. Food and Drug Administration. 50 Test Performed by: [facility] [place] [address] 51 It is recognized that currently available [...] confidence interval of 99.78 to 99.96%. 52 [id number] 53 Therapeutic target for the treatment of diabetes mellitus patients is <7% HBA1C, and in selective patients <6.0%. Please refer to [employer] diabetic care guidelines for further information. 54 [id number] 55 Warning: A positive result is not useful for establishing a diagnosis of syphilis. In most situations, such a result may reflect a prior treated infection; a negative result can exclude a diagnosis of syphilis except for incubating or early primary disease. 56 SEE RESULT BELOW Name: NIMESH PATIÑORIGHTSTEVE : [address]: Cathleen Shore Acct: [id number] Unit: [id number] AGE: 27 Location: [facility] Re03/07/18 SEX: F Status: REG REF SPEC: [id number] FRANKIE: 03/07/[address]: Cathleen Shore REQ: [id number] RECD: 03/07/18 STATUS: SOUT _ ORDERED: TP IMAGE ANALYS, HPV/Thin Prep COMMENTS: [id number] Negative for Intraepithelial lesion or Malignancy Date Time Test Result Flag (u) Normal Range 03/07/18 3373 @ HPV RNA Negative Negative @ @ [...] was evaluated with the assistance of the Cytoxp Test Imaging System. Due to cytologic findings at the metal buggy operator microscope, comprehensive manual rescreening by a Correctional Cook may be required. The Pap Smear is [...] years. END OF REPORT DEPARTMENT OF PATHOLOGY, [address] [place] [address] Bean Ott M.D. Director [facility] # [id number] Procedures Date Code Description Status 09/02/2018 81505 Echography Uterus Limited Completed 08/30/2018 00660 Echography Uterus Limited Completed 08/30/2018 51948 Non-Stress Test Completed 08/20/2018 87458 Biophysical Profile Without Non Stress Test Completed 08/20/2018 16756 Echography Uterus Follow-Up Or Repeat Completed 08/13/2018 62124 Non-Stress Test Completed 05/02/2018 49986 Echography Uterus Complete Completed 03/07/2018 36905 OB Ultrasound First Trimester Completed Encounters Description No Information Available Plan of Treatment Future Appointment(s):10/11/2018 1:00 pm - Janice Keys MD at [facility] 10:20 am - Lashanda Delgado CNM at [facility]09/11/2018 9:30 am - Janice Keys MD at [facility]
[2018-09-11] MEDS ORDERED: OXYTOCIN* 10 UNITS/ML 1 ML VIAL ONE (08:58)
[2018-09-11] MEDS ORDERED: Ondansetron INJ* 2 MG/ML VIAL ONE (08:58)
[2018-09-11] MEDS ORDERED: Dexamethasone IV* 4 MG/ML 1 ML (4 MG) ONE (08:58)
[2018-09-11] MEDS ORDERED: Morphine PF AMP (0.5MG/ML)* 5 MG/10 ML AMP ONE (08:58)
[2018-09-11] MEDS ORDERED: Naloxone* 0.4 MG/ML 1 ML VIAL IV PRN ×2 (09:03→10:57)
[2018-09-11] MEDS ORDERED: fentaNYL* 50 MCG/ML 2 ML VIAL (100 MCG VIAL) IV PRN (09:03)
[2018-09-11] MEDS ORDERED: oxyCODONE TAB* 5 MG TAB PO PRN ×2 (09:03→10:57)
[2018-09-11] MEDS ORDERED: Acetaminophen IV 1GM/100ML * 1,000 MG/100 ML VIAL IVPB ONE (09:03)
[2018-09-11] MEDS ORDERED: DiMENhydriNATE IV* 50 MG/ML VIAL IV PUSH PRN (09:03)
[2018-09-11] MEDS ORDERED: ceFAZolin 2 GM PREMIX in ORs 2 GM/50 ML BAG IVPB ONE (09:09)
[2018-09-11] MEDS ORDERED: EPHEDrine (Pressors)* 50 MG/ML VIAL ONE (10:24)
[2018-09-11] MEDS ORDERED: Scopolamine 1.5 mg* PATCH TRANSDERM PRN (10:57)
[2018-09-11] MEDS ORDERED: PROCHLORPERAZINE INJ 5 MG/ML 2 ML VIAL IV PRN (10:57)
[2018-09-11] MEDS ORDERED: Nalbuphine* 10 MG/ML 1 ML VIAL IV PRN (10:57)
[2018-09-11] MEDS ORDERED: Ketorolac INJ* 30 MG/ML 1 ML VIAL IV SCH ×2 (11:00)
[2018-09-11] MEDS: Ondansetron INJ* 2 MG/ML VIAL IV PRN ×2 (14:05→20:13)
[2018-09-11] MEDS: Ketorolac INJ* 30 MG/ML 1 ML VIAL IV SCH (18:24)
[2018-09-12] MEDS ORDERED: Witch Hazel PAD* JAR TOPICAL PRN (01:35)
[2018-09-12] MEDS ORDERED: Glycerin ADULT SUPP PR PRN (01:35)
[2018-09-12] MEDS ORDERED: Zolpidem TAB* 5 MG PO PRN (01:35)
[2018-09-12] MEDS ORDERED: Dibucaine 1% 28.35 GM TUBE PR PRN (01:35)
[2018-09-12] MEDS ORDERED: Lactated Ringers 1000 ML Bag* 1,000 ML IV SCH (02:00)
[2018-09-12] MEDS ORDERED: oxyCODONE/Acetamin 5/325 MG* TAB PO PRN (02:20)
--- NOTE | 2018-09-12 03:36 | OP ---
DATE OF OPERATION: 09/11/18 - ROOM #117 DATE OF : [birth year] SURGEON: Janice Keys MD. ASSISTANTS: Federico Montano MD and Lana Garcia CNM PRE-OP DIAGNOSES: 1. Intrauterine gestation at 39 weeks gestational age. 2. Prior section. 3. A2 gestational diabetes. 4. Breech presentation 5. Desires permanent sterilization. POST-OP DIAGNOSES: 1. Intrauterine gestation at 39 weeks gestational age. 2. Prior section. 3. A2 gestational diabetes. 4. Breech presentation 5. Desires permanent sterilization. OPERATIVE PROCEDURES: Repeat low transverse section and bilateral tubal ligation. ESTIMATED BLOOD LOSS: 800 mL. FLUIDS: Crystalloid. SPECIMENS: Tubes and placenta. FINDINGS: Female , Apgars 9 and 9, weight 7 pounds 1 ounce. Normal- appearing placenta, uterus, ovaries, and tubes. There was some omental adhesion to the anterior peritoneum in the rectus muscles. DESCRIPTION OF PROCEDURE: After informed consent was signed, the patient was taken to the operating room, where she was given a spinal anesthesia that was found to be adequate. SCDs were placed on her legs and a Elliott catheter was introduced into her bladder. She was prepped and draped in the dorsal supine position with a leftward tilt. A time-out was performed. Then, a Pfannenstiel skin incision was then made with a scalpel, carried down to the underlying layer of fascia. The fascia was incised on either side of the midline and the fascial incision was extended laterally with sharp dissection. The inferior edge of the fascial incision was grasped with Seth clamps and dissected down with sharp dissection. Then, the superior edge of the fascial incision was also grasped with Seth clamps and dissected down with sharp dissection. The rectus muscles were in the midline and the peritoneum was entered with blunt dissection and extended laterally with blunt dissection. The bladder blade was inserted and a transverse incision was made in the lower uterine segment with a scalpel. The incision was extended superiorly and inferiorly with blunt pressure. The 's feet were delivered followed by the torso, rest of the body, the arms were delivered with inward rotation and the head was delivered in a flexed position. The cord was milked towards the baby, then clamped x2 and cut after more than a minute. The baby was handed to the ironworker wire fence erector and cord gas was collected. The placenta was delivered with fundal massage and gentle cord traction. The uterus was then exteriorized and cleared of clots and debris. The uterine incision was closed with 0 Vicryl in a running locked fashion with a second layer of suture imbricating the first. Attention was then turned to the tubes after confirmation of the desire for permanent sterilization. The left tube was grasped and clamped with Liane clamps x2, across the distal portion of the tube. The distal portion of the tube was then suture ligated x2 and the fimbriated end was removed with Metzenbaum scissors. Good hemostasis was noted. The same thing was repeated on the patient's right side. Good hemostasis was also noted. The abdomen was irrigated and the uterus was placed back into the abdominal cavity. The incision was inspected and good hemostasis was noted. The peritoneum was then closed with 3-0 Vicryl in a running unlocked fashion. Good hemostasis was found along the rectus muscles and the fascia was then closed with 0 Vicryl in a running unlocked fashion. Three interrupted sutures with 3-0 Vicryl were placed in the subcuticular layer. This was irrigated and the skin was then closed with 4-0 Monocryl in a running subcuticular fashion. The incision was cleaned. Mastisol and Steri-Strips were placed. A dressing was placed and the patient was moved to the stretcher and taken to the recovery room in stable condition. [id number]/CPS #: [id number] VILMA
[2018-09-12] MEDS: Ibuprofen TAB* 600 MG PO PRN ×3 (04:33→16:42)
[2018-09-12 08:08] LABS: ABS Basophils 0 10^3/ul (0-0.2); ABS Eosinophils 0 10^3/ul (0-0.6); ABS Lymphocytes 2.7 10^3/ul (1.0-4.8); ABS Monocytes 0.7 10^3/ul (0-0.8); ABS Neutrophils 4.9 10^3/ul (1.5-7.7); ABS Nucleated RBC 0 10^3/ul; Eosinophil % 0.5 %; Hematocrit 30 % (33-41); Hemoglobin 9.6 g/dL (12.0-16.0); Mean Corpuscular HGB Conc 32 g/dL (31-36); Mean Corpuscular Hemoglobin 25 pg (27-31); Mean Corpuscular Volume 78 fL (80-97); Mean Platelet Volume 7.3 fL (7.4-10.4); Nucleated Red Blood Cells % 0; Platelet Count 236 10^3/uL (150-450); Red Blood Count 3.89 10^6 /uL (3.70-4.87); Red Cell Distribution Width 18 % (10.5-15); White Blood Count 8.3 10^3/uL (3.5-10.8)
[2018-09-12] MEDS ORDERED: Ferrous Gluconate TAB* 324 MG TAB ONE ×2 (10:24→20:53)
[2018-09-12] MEDS: Simethicone TAB* 80 MG TAB.CHEW PO SCH ×4 (10:26→20:56)
[2018-09-12] MEDS: Docusate CAP* 100 MG PO SCH ×3 (10:26→20:56)
[2018-09-12] MEDS: Acetaminophen TAB* 325 MG PO PRN ×3 (10:26→20:55)
[2018-09-12] MEDS ORDERED: Ferrous Sulfate TAB* 325 MG ONE (20:51)
[2018-09-12] MEDS: Ferrous Gluconate TAB* 324 MG TAB PO SCH (20:56)
[2018-09-13] MEDS: Ibuprofen TAB* 600 MG PO PRN ×3 (00:40→18:22)
[2018-09-13] MEDS: oxyCODONE/Acetamin 5/325 MG* TAB PO PRN ×3 (00:40→20:32)
[2018-09-13] MEDS: Simethicone TAB* 80 MG TAB.CHEW PO SCH ×4 (08:50→20:33)
[2018-09-13] MEDS: Ferrous Gluconate TAB* 324 MG TAB PO SCH ×2 (08:50→20:32)
[2018-09-13] MEDS: Docusate CAP* 100 MG PO SCH ×3 (08:50→20:32)
[2018-09-13] MEDS ORDERED: Measles, Mumps,Rubella VACC* 0.5 ML/VIAL SUBCUT ONE (17:08)
--- NOTE | 2018-09-13 17:54 | PTEDU ---
Patient Name: STEVE SHIN STEVE SHIN selected video: Never Ever Shake a Baby to view on 09/13/2018 at 5:52:57 PM om [id number]
[2018-09-13] MEDS: Acetaminophen TAB* 325 MG PO SCH ×2 (20:44→20:45)
[2018-09-13] MEDS: Ketorolac INJ* 30 MG/ML 1 ML VIAL IV SCH (20:45)
[2018-09-14] MEDS: oxyCODONE/Acetamin 5/325 MG* TAB PO PRN ×2 (03:50→08:46)
[2018-09-14] MEDS: Ibuprofen TAB* 600 MG PO PRN ×2 (03:50→10:37)
[2018-09-14] MEDS: Docusate CAP* 100 MG PO SCH (08:47)
[2018-09-14] MEDS: Ferrous Gluconate TAB* 324 MG TAB PO SCH (08:47)
[2018-09-14] MEDS: Simethicone TAB* 80 MG TAB.CHEW PO SCH (08:47)
[2018-09-14 10:13] VITALS: BP 128/57
[2018-09-14] MEDS ORDERED: Scopolamine PATCH Remove* 1 NOTE MISC PATCH OFF PRN (10:58)
== END 2018-09-14 11:13 | disposition home or self-care (01) | DRG 540 ==
LOC: MCHOB 07:57
PROVIDERS: ADMIT Obstetrics & Gynecology; ATTEND Obstetrics & Gynecology
PROC: 4A1HXCZ Monitoring of Products of Conception, Cardiac Rate, External Approach (ICD-10-PCS; 2018-09-11)
PROC: 0UB70ZZ Excision of Bilateral Fallopian Tubes, Open Approach (ICD-10-PCS; 2018-09-11)
PROC: 10D00Z1 Extraction of Products of Conception, Low, Open Approach (ICD-10-PCS; principal; 2018-09-11 09:45)
DX: O34.211 Maternal care for low transverse scar from previous cesarean delivery (principal); O99.824 Streptococcus B carrier state complicating childbirth; O24.424 Gestational diabetes mellitus in childbirth, insulin controlled; O32.1XX0 Maternal care for breech presentation, not applicable or unspecified; Z3A.39 39 weeks gestation of pregnancy; Z37.0 Single live birth; Z88.1 Allergy status to other antibiotic agents; Z30.2 Encounter for sterilization
CPT/HCPCS: 36415; 85025; 88302; A9270-GY; J0690; J1100; J1885; J2405; J2590

== ENCOUNTER 2019-06-11 19:42 | Emergency (ER) | payer BC, OTHER ==
--- OUTSIDE RECORDS SUMMARY | 2019-06-11 20:30 | XMS REPORT | Continuity of Care Document ---
:1990 External Reference #:[id number] Author Name Black Bailey MD,FACS Address [address] [place] [id number] Care Team Providers Name Role Phone Amanda Wilcox NP - Family Care Team Information Securities Sales Associate Problems Active Problems Provider Date Heart murmur Padmini Peña ANP Onset: 08/29/2011 Chest pain Padmini Peña ANP Onset: 08/29/2011 Acute cholecystitis Black Bailey MD,FACS Onset: 06/02/2019 Complete atrioventricular block Peter Lynn M.D., [facility] Onset: 2018 Social History Type Date Description Comments Sex Unknown Tobacco Use Start: Unknown Never Smoked Cigarettes Smoking Status Reviewed: 01/20/19 Never Smoked Cigarettes ETOH Use Rarely consumes alcohol Allergies, Adverse Reactions, Alerts Active Allergies Reaction Severity Comments Date Erythromycin 08/28/2011 Pecans 10/24/2018 Amoxicillin rash 10/29/2018 Medications Description No Information Available Immunizations Description No Information Available Vital Signs Date Vital Result Comment 06/02/2019 9:41am BP Systolic Sitting Right Arm 109 mmHg BP Diastolic Sitting Right Arm 73 mmHg Body Temperature 98.2 F Heart Rate 72 /min Height 63 inches 5'3" Weight 192.00 lb BMI (Body Mass Index) 34.0 kg/m2 BSA (Body Surface Area) 1.90 m2 [place] body weight in kilograms 52 kg O2 % BldC Oximetry 98 % ra 04/23/2019 11:05am BP Systolic Sitting Left Arm 122 mmHg BP Diastolic Sitting Left Arm 64 mmHg Heart Rate 71 /min Respiratory Rate 18 /min Height 63 inches 5'3" Weight 191.00 lb BMI (Body Mass Index) 33.8 kg/m2 BSA (Body Surface Area) 1.90 m2 [place] body weight in kilograms 52 kg O2 % BldC Oximetry 97 % Ora Results Test Acquired Date Facility Test Result H/L Range Note CBC 05/21/2019 [facility] White Blood 9.3 K/uL Normal 3.1-10.7 1 W/Automated [address] [place] [address] [phone] Red Blood Count 4.24 M/uL Normal 3.90-5.40 Hemoglobin 12.4 gm/dL Normal 11.6-15.8 Hematocrit 38.1 % Normal 36.0-46.1 Mean Cell Volume 89.9 fl Normal 80.9-99.0 Mean Corpuscular HGB 29.2 pg Normal 25.9-32.7 Mean Corpuscular HGB Conc 32.5 g/dL Normal 30.8-34.3 Platelet Count 313 K/uL Normal 155-360 Red Cell Distri Width SD 42.3 fl Normal 36-47 Red Cell Distri Width %CV 12.9 % Normal 11.7-14.4 Mean Platelet Volume 9.0 fl Normal 8.9-12.4 Neut% 64.5 % Normal 40.4-72.8 Lymph % 29.1 % Normal 20.0-42.0 [place] % 5.8 % Normal 4.3-13.2 Eo% 0.1 % Normal 0.0-6.6 Bas% 0.2 % Normal 0.0-1.1 Immature Grans 0.3 % Normal 0.0-5.0 NRBC % 0.0 /100WBC < 10/ 100 WBC Neut# 6.01 K/uL Normal 1.8-7.0 Lymph # 2.71 K/uL Normal 1.0-4.0 [place]arton # 0.54 K/uL Normal 0.3-0.9 Eos # 0.01 K/uL Normal 0.0-0.5 Baso # 0.02 K/uL Normal 0.0-0.1 Immature Grans Absolute 0.03 K/uL NRBC # 0.00 K/uL 1 ABD PAIN, BILIARY DYSKINESIA Procedures Date Code Description Status 05/20/2019 46047 Cholecystectomy with cholangiography Completed 05/13/2019 16512 Dual Pacemaker Programming Anayisis, Review And Report Completed 03/11/2019 60150 Dual Pacemaker Programming Anayisis, Review And Report Completed 01/20/2019 27591 EKG-Tracing And Report Completed Medical Devices Description No Information Available Encounters Type Date Location Provider Dx Diagnosis Office Visit 04/23/2019 Cardiology Office Janice Barragan I44.1 Atrioventricular block, 11:00a Boo, MSN, second degree [employer] Z95.0 Presence of cardiac pacemaker Office Visit 01/20/2019 Cardiology Janice Barragan I44.1 Atrioventricular 7:40a Office JOLIE Haddad, block, second degree [employer] Z95.0 Presence of cardiac pacemaker Office Visit 12/05/2018 Cardiology Janice Barragan I44.1 Atrioventricular 11:20a Office JOLIE Haddad, block, second degree [employer] R42 Dizziness and giddiness Assessments Date Code Description Provider 06/02/2019 K81.0 Acute cholecystitis Black Bailey MD,FACS 05/21/2019 R10.11 Right upper quadrant pain Yesi Arreola M.D. 05/21/2019 K80.20 Calculus of gallbladder without Yesi Arreola M.D. cholecystitis without obstruction 05/21/2019 R11.0 Nausea Yesi Arreola M.D. 05/21/2019 I49.5 Sick sinus syndrome Yesi Arreola M.D. 05/20/2019 K81.0 Acute cholecystitis Black Bailey MD,FACS 05/20/2019 R10.11 Right upper quadrant pain Jeff Gardiner M.D. 05/20/2019 R10.11 Right upper quadrant pain Black Bailey MD,FACS 05/20/2019 K80.20 Calculus of gallbladder without Jeff Gardiner M.D. cholecystitis without obstruction 05/20/2019 R11.0 Nausea Black Bailey MD,FACS 05/20/2019 R11.0 Nausea Jeff Gardiner M.D. 05/20/2019 Z95.0 Presence of cardiac pacemaker Black Bailey MD,FACS 05/20/2019 I49.5 Sick sinus syndrome Jeff Gardiner M.D. 05/13/2019 I44.1 Atrioventricular block, second degree Peter Lynn M.D., [facility] 05/13/2019 I44.1 Atrioventricular block, second degree Phill Davidson, PA 05/13/2019 Z95.0 Presence of cardiac pacemaker Peter Lynn M.D., [facility] 05/13/2019 Z95.0 Presence of cardiac pacemaker Phill Davidson, PA 04/23/2019 I44.1 Atrioventricular block, second degree Barragan, Janice Haddad, MSN, [facility] 04/23/2019 Z95.0 Presence of cardiac pacemaker Janice Barragan, MSN, [facility] 03/11/2019 I44.1 Atrioventricular block, second degree Peter Lynn M.D., [facility] 03/11/2019 I44.1 Atrioventricular block, second degree Stuart, Phill Frausto., PA 03/11/2019 Z95.0 Presence of cardiac pacemaker Peter Lynn M.D., [facility] 03/11/2019 Z95.0 Presence of cardiac pacemaker Phill Davidson, PA 01/20/2019 I44.1 Atrioventricular block, second degree Laurel, Janice Haddad, MSN, [facility] 01/20/2019 Z95.0 Presence of cardiac pacemaker Janice Barragan, JOLIE, [facility] 12/05/2018 I44.1 Atrioventricular block, second degree Janice Barragan, JOLIE, [facility] 12/05/2018 R42 Dizziness and giddiness Janice Barragan, MSN, [employer] Plan of Treatment Future Appointment(s):11/11/2019 8:40 am - Phill Davidson PA at Cardiology Vutiqt7104/21/2020 10:00 am - Janice Barragan, MSN, [employer] at Cardiology Bfhjdo5206/02/2019 - Black Bailey MD,FACSK81.0 Acute cholecystitisComments:s/p laparoscopic cholecystectomy. doing well. healing well. pathology report was reviewed and discussed with the patient. RTC prn. Functional Status Functional Condition Comment Date Status Independent with all ADL's Active Mental Status Description No Information Available Referrals Description No Information Available
--- OUTSIDE RECORDS SUMMARY | 2019-06-11 20:30 | XMS REPORT | Continuity of Care Document ---
:1990 External Reference #:[id number] Author Name Janice Barragan, MSN, GYM ATTENDANT Address [address] [place] [address] Care Team Providers Name Role Phone Amanda Wilcox, PERITONEAL DIALYSIS REGISTERED NURSE - Family Care Team Information Land Measurer [phone] Problems Active Problems Provider Date Heart murmur Padmini Peña ANP Onset: 08/29/2011 Chest pain Padmini Peña ANP Onset: 08/29/2011 Complete atrioventricular block Peter Lynn M.D., [facility] Onset: 2018 Social History Type Date Description Comments Sex Unknown Tobacco Use Start: Unknown Never Smoked Cigarettes Smoking Status Reviewed: 01/20/19 Never Smoked Cigarettes ETOH Use Rarely consumes alcohol Allergies, Adverse Reactions, Alerts Active Allergies Reaction Severity Comments Date Erythromycin 08/28/2011 Pecans 10/24/2018 Amoxicillin rash 10/29/2018 Medications Description No Information Available Immunizations Description No Information Available Vital Signs Date Vital Result Comment 04/23/2019 11:05am BP Systolic Sitting Left Arm 122 mmHg BP Diastolic Sitting Left Arm 64 mmHg Heart Rate 71 /min Respiratory Rate 18 /min Height 63 inches 5'3" Weight 191.00 lb BMI (Body Mass Index) 33.8 kg/m2 BSA (Body Surface Area) 1.90 m2 [place] body weight in kilograms 52 kg O2 % BldC Oximetry 97 % Ora 01/20/2019 7:51am BP Systolic Sitting Left Arm 120 mmHg BP Diastolic Sitting Left Arm 66 mmHg Heart Rate 73 /min Respiratory Rate 16 /min Height 63 inches 5'3" Weight 198.00 lb BMI (Body Mass Index) 35.1 kg/m2 BSA (Body Surface Area) 1.93 m2 [place] body weight in kilograms 52 kg O2 Saturation Level with Exercise 96 % Results Description No Information Available Procedures Date Code Description Status 03/11/2019 10428 Dual Pacemaker Programming Anayisis, Review And Report Completed 01/20/2019 09156 EKG-Tracing And Report Completed 11/11/2018 70719 Echocardiogram Complete Completed 10/24/2018 98833 EKG-Tracing And Report Completed Medical Devices Description No Information Available Encounters Type Date Location Provider Dx Diagnosis Office Visit 04/23/2019 Cardiology Office Janice Barragan I44.1 Atrioventricular block, 11:00a JOLIE Haddad, second degree GYM ATTENDANT Z95.0 Presence of cardiac pacemaker Office Visit 01/20/2019 Cardiology Janice Barragan I44.1 Atrioventricular 7:40a Office JOLIE Haddad, block, second degree GYM ATTENDANT Z95.0 Presence of cardiac pacemaker Office Visit 12/05/2018 Cardiology Janice Barragan I44.1 Atrioventricular 11:20a Office JOLIE Haddad, block, second degree GYM ATTENDANT R42 Dizziness and giddiness Office Visit 10/24/2018 Cardiology Leah I44.2 Atrioventricular 7:00a Office Peter Vieyra M.D., block, complete [facility] Assessments Date Code Description Provider 04/23/2019 I44.1 Atrioventricular block, second degree Janice Barragan, MSN, GYM ATTENDANT 04/23/2019 Z95.0 Presence of cardiac pacemaker Janice Barragan, MSN, GYM ATTENDANT 03/11/2019 I44.1 Atrioventricular block, second degree Peter Lynn M.D., [facility] 03/11/2019 I44.1 Atrioventricular block, second degree Phill Davidson, PA 03/11/2019 Z95.0 Presence of cardiac pacemaker Peter Lynn M.D., [facility] 03/11/2019 Z95.0 Presence of cardiac pacemaker Phill Davidson, PA 01/20/2019 I44.1 Atrioventricular block, second degree Janice Barragan, MSN, GYM ATTENDANT 01/20/2019 Z95.0 Presence of cardiac pacemaker Janice Barragan, MSN, GYM ATTENDANT 12/05/2018 I44.1 Atrioventricular block, second degree Janice Barragan, MSN, GYM ATTENDANT 12/05/2018 R42 Dizziness and giddiness Janice Barragan, MSN, GYM ATTENDANT 11/11/2018 I44.2 Atrioventricular block, complete Peter Lynn M.D., [facility] 10/24/2018 I44.2 Atrioventricular block, complete Peter Lynn M.D., [facility] Plan of Treatment Future Appointment(s):07/15/2019 8:45 am - Phill Davidson, PA at Cardiology Seqsrj8404/21/2020 10:00 am - Janice Barragan, JOLIE, GYM ATTENDANT at Cardiology Swpksk3905/13/2019 8:50 am - Phill Davidson, PA at Cardiology Iuheog3204/23/2019 - Janice Barragan, JOLIE, FNPI44.1 Atrioventricular block , second degreeComments:Monitor.Z95.0 Presence of cardiac pacemakerComments: Will follow in our pacer clinic, per protocol.AllFollow up:Follow up visit in one year. Functional Status Functional Condition Comment Date Status Independent with all ADL's Active Mental Status Description No Information Available Referrals Refer to Reason for Referral Status Appt Date Mohinder Zhu MD dual chamber pacer Created [address] [facility] [address], [address] [place], [place] [address] [phone]
[2019-06-11 20:33] VITALS: BP 116/69
[2019-06-11 20:44] LABS: Influenza B Molecular POSITIVE (Negative)
--- NOTE | 2019-06-11 20:54 | UC ---
HPI Febrile Illness - HPI Summary HPI Summary: Per svp of digital: "Pt stated that she has a nasty cough, fever and not feeling well x4 days off and on. 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 -sx started 06/08/19 and have progressed. -no wheezing. has EIA but no resp distress. - History of Current Complaint Chief Complaint: UCGeneralIllness Time Seen by Provider: 06/11/19 20:36 Hx Last Menstrual Period: 05/28/2019 Pain Intensity: 3 - Allergy/Home Medications Allergies/Adverse Reactions: Allergies Allergy/AdvReac Type Severity Reaction Status Date / Time amoxicillin Allergy Rash Verified 06/11/19 20:33 erythromycin base Allergy Hives Verified 06/11/19 20:33 pecans Allergy Severe Swelling Uncoded 06/11/19 20:33 Of Face,Lips,& Throat PMH/Surg Hx/FS Hx/Imm Hx Previously Healthy: Yes - Surgical History Surgical History: Yes Surgery Procedure, Year, and Place: C- section 09/26/15; wisdom teeth; gallbladder removal - Family History Known Family History: Positive: Cardiac Disease - BROTHER WPW, FATHER CARDIAC CONCERNS, Hypertension, Diabetes, Other - NO fmh of mastitis - Social History Alcohol Use: Occasionally Substance Use Type: None Smoking Status (MU): Never Smoked Tobacco Have You Smoked in the Last Year: No - Immunization History Most Recent Influenza Vaccination: fall 2017 Most Recent Pneumonia Vaccination: na Review of Systems All Other Systems Reviewed And Are Negative: Yes Constitutional: Positive: Fever, Chills, Fatigue Skin: Positive: Negative. Negative: Rash Eyes: Positive: Negative ENT: Positive: Sore Throat, Nasal Discharge Respiratory: Positive: Negative, Cough - mild. Negative: Shortness Of Breath Cardiovascular: Positive: Negative. Negative: Palpitations, Chest Pain Gastrointestinal: Positive: Negative, Nausea. Negative: Vomiting, Diarrhea Genitourinary: Positive: Negative Motor: Positive: Negative Neurovascular: Positive: Negative Musculoskeletal: Positive: Myalgia Neurological: Positive: Negative Psychological: Positive: Negative Is Patient Immunocompromised?: No Physical Exam Triage Information Reviewed: Yes Appearance: Well-Nourished, Ill-Appearing - mild-mod Vital Signs: Initial Vital Signs Temp 99.8 F 06/11/19 20:30 Pulse 87 01/15/20 20:30 Resp 16 06/11/19 20:30 BP 116/69 06/11/19 20:30 Pulse Ox 99 06/11/19 20:30 Vital Signs Reviewed: Yes Eye Exam: Normal ENT Exam: Normal ENT: Positive: Pharyngeal erythema, Nasal congestion, TMs normal, Uvula midline. Negative: TM bulging, TM dull, TM red, Sinus tenderness Neck exam: Normal Neck: Positive: Supple, Nontender, No Lymphadenopathy Respiratory Exam: Normal Respiratory: Positive: Lungs clear, Normal breath sounds, No respiratory distress, No accessory muscle use. Negative: Crackles, Rhonchi, Stridor, Wheezing Cardiovascular Exam: Normal Cardiovascular: Positive: RRR, No Murmur Abdominal Exam: Normal Abdomen Description: Positive: Nontender, Soft Musculoskeletal Exam: Normal Neurological Exam: Normal Psychological Exam: Normal Skin Exam: Normal Skin: Negative: Rashes Course/Dx - Course Course Of Treatment: + rapid flu. sx started 5 days ago. no tamiflu indicated -fluids/rest -she agrees w/ plan - Febrile Illness Differential Diagnoses: Viremia - Diagnoses Provider Diagnosis: Influenza Discharge ED - Sign-Out/Discharge Documenting (check all that apply): Patient Departure All imaging exams completed and their final reports reviewed: No Studies - Discharge Plan Condition: Stable Disposition: HOME Patient Education Materials: Influenza (DC) Forms: *Work Release Referrals: No Primary Care Phys,NOPCP [Primary Care Provider] - [facility] [Outside] - 5 Days Additional Instructions: Drinks lots of fluids and rest. Tyelnol/ibuprofen for pain, fever. 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 - Billing Disposition and Condition Condition: STABLE Disposition: Home
== END 2019-06-11 21:16 | disposition home or self-care (01) ==
LOC: UCCORT 19:42
DX: J11.1 Influenza due to unidentified influenza virus with other respiratory manifestations (principal); Z88.0 Allergy status to penicillin; Z88.1 Allergy status to other antibiotic agents; Z91.09 Other allergy status, other than to drugs and biological substances
CPT/HCPCS: 99211; G0463

== ENCOUNTER 2019-08-12 16:15 | Emergency (ER) | payer BC, OTHER ==
[2019-08-12 16:47] VITALS: BP 139/70
--- NOTE | 2019-08-12 18:06 | UC ---
Throat Pain/Nasal Robbin HPI - HPI Summary HPI Summary: Per wastewater engineer: "Sore throat and bilateral ear pain x1 week. Denies fever. " -she has h/o tonsil stones and strep. feels liek strep -no fever. no SOB or dyspnea -no rash -h/o SSS and pacer, likely congenital she reports - History of Current Complaint Chief Complaint: UCGeneralIllness Stated Complaint: SORE THROAT Time Seen by Provider: 08/12/19 17:39 Hx Last Menstrual Period: 08/05/2019 Pain Intensity: 4 - Allergies/Home Medications Allergies/Adverse Reactions: Allergies Allergy/AdvReac Type Severity Reaction Status Date / Time amoxicillin Allergy Rash Verified 08/12/19 16:43 erythromycin base Allergy Hives Verified 08/12/19 16:43 pecans Allergy Severe Swelling Uncoded 08/12/19 16:43 Of Face,Lips,& Throat Home Medications: Home Medications Epi Pen 1 inj IM ONCE PRN 03/28/13 [History Confirmed 08/12/19] Acetaminophen [Tylenol] 325 mg PO Q4H PRN 09/09/18 [History Confirmed 08/12/19] Cefuroxime 500 MG TAB (NF) [Ceftin 500 MG TAB (NF)] 500 mg PO BID #20 tab [Rx] Escitalopram * [Lexapro *] 10 mg PO DAILY 08/12/19 [History Confirmed 08/12/19] PMH/Surg Hx/FS Hx/Imm Hx Previously Healthy: Yes Cardiovascular History: Pacemaker/ICD - Surgical History Surgical History: Yes Surgery Procedure, Year, and Place: C- section 09/26/15; wisdom teeth; gallbladder removal - Family History Known Family History: Positive: Cardiac Disease - BROTHER WPW, FATHER CARDIAC CONCERNS, Hypertension, Diabetes, Other - NO fmh of mastitis - Social History Alcohol Use: Occasionally Substance Use Type: None Smoking Status (MU): Never Smoked Tobacco Have You Smoked in the Last Year: No - Immunization History Most Recent Influenza Vaccination: fall 2017 Most Recent Pneumonia Vaccination: na Review of Systems All Other Systems Reviewed And Are Negative: Yes Constitutional: Negative: Fever, Fatigue Skin: Negative: Rash Eyes: Positive: Negative ENT: Positive: Sore Throat Respiratory: Positive: Negative. Negative: Shortness Of Breath, Cough Cardiovascular: Positive: Negative. Negative: Palpitations, Chest Pain Gastrointestinal: Positive: Negative. Negative: Vomiting, Diarrhea, Nausea Motor: Positive: Negative Neurovascular: Positive: Negative Musculoskeletal: Positive: Negative Neurological/Mental Status: Positive: Negative Psychological: Positive: Negative Is Patient Immunocompromised?: No Physical Exam Triage Information Reviewed: Yes Appearance: Well-Appearing, No Pain Distress, Well-Nourished Vital Signs: Initial Vital Signs Temp 97.3 F 08/12/19 16:43 Pulse 65 08/12/19 16:43 Resp 16 08/12/19 16:43 BP 139/70 08/12/19 16:43 Pulse Ox 98 08/12/19 16:43 Vital Signs Reviewed: Yes Eye Exam: Normal ENT Exam: Normal ENT: Positive: Pharyngeal erythema - mild w/ rt stone vs exudate, TMs normal, Uvula midline. Negative: TM bulging, TM dull, TM red, Tonsillar swelling, Sinus tenderness Neck exam: Normal Neck: Positive: Supple, Nontender, No Lymphadenopathy Respiratory Exam: Normal Respiratory: Positive: Chest non-tender, Lungs clear Cardiovascular Exam: Normal Cardiovascular: Positive: RRR Abdominal Exam: Normal Abdomen Description: Positive: Nontender, Soft Musculoskeletal Exam: Normal Neurological Exam: Normal Psychological Exam: Normal Skin Exam: Normal Skin: Negative: Rashes Throat Pain/Nasal Course/Dx - Course Course Of Treatment: RS neg -send TC bc it feels like prev strep but does have tonsillitis as well -treat w/ ceftin. has PCN allergy, aware of very low chance of cross allergic rxn. she will monitor -avoid zpack bc risk of arrhythmia. -she is very agreeable w/ plan. good historian. reliable. - Differential Dx/Diagnosis Differential Diagnosis/HQI/PQRI: Laryngitis, Pharyngitis, Tonsillitis, URI Provider Diagnosis: Tonsillitis Discharge ED - Sign-Out/Discharge Documenting (check all that apply): Patient Departure All imaging exams completed and their final reports reviewed: No Studies - Discharge Plan Condition: Stable Disposition: HOME Patient Education Materials: Tonsillitis (ED) Referrals: Patience Julio MD [Primary Care Provider] - 3 Days Additional Instructions: Rapid strep is negative but we are doing a throat culture. You may not get a call with the results. -It is recommended that you take a probiotic daily while you are on antibiotics. A few common brands that you can buy over the counter are colon health, align and florastor. These can help prevent a colon infection called c diff that can be associated with antibiotic use. -You states that you have taken a zpack in the past for strep without any difficulty, however it can cause arrhythmias so I prefer to use ceftin. Please call here for the results and you can stop the antibiotic of jack throat culture comes back negative. . -please call your PCP for follow up guidance, especially if your symptoms change , develop a fever or difficulty breathing - Billing Disposition and Condition Condition: STABLE Disposition: Home
== END 2019-08-12 18:24 | disposition home or self-care (01) ==
LOC: UCCORT 16:15
DX: J03.90 Acute tonsillitis, unspecified (principal); Z88.0 Allergy status to penicillin; Z88.1 Allergy status to other antibiotic agents; Z95.0 Presence of cardiac pacemaker; Z91.018 Allergy to other foods
CPT/HCPCS: 87070; 87651; 99212; G0463